=== PATIENT | female | born 2000 | race African-American/Black ===

== ENCOUNTER 2023-12-07 18:51 | Emergency (ER) | payer MEDICAID ==
[~2023-12-07] VITALS: Ht 177.8 cm; Wt 82.0 kg
[2023-12-07 18:52] VITALS: BP 132/90; PULSE 62; RESP 18; TEMP 98.1; O2SAT 98
[2023-12-07] MEDS ORDERED: IBUPROFEN 600MG TABLET PO ONE (19:30)
[2023-12-07] MEDS ORDERED: METOCLOPRAMIDE HCL 10MG TABLET PO NR (19:30)
[2023-12-07] MEDS ORDERED: DIPHENHYDRAMINE 25MG CAPSULE PO NR (19:30)
[2023-12-07] MEDS ORDERED: METOCLOPRAMIDE HCL 10MG TABLET PO ONE (19:30)
[2023-12-07] MEDS ORDERED: IBUPROFEN 600MG TABLET PO NR (19:30)
[2023-12-07] MEDS ORDERED: DIPHENHYDRAMINE 50MG CAPSULE PO ONE (19:30)
[2023-12-07] MEDS ORDERED: ASPI-1154 PO (20:14)
== END 2023-12-07 21:09 | disposition home or self-care (01) ==
LOC: ER 18:51
DX: G43.909 Migraine, unspecified, not intractable, without status migrainosus (principal)
CPT/HCPCS: 99283; Q0163